=== PATIENT | female | born 1985 | race Hispanic/Latino ===

== ENCOUNTER 2024-12-16 19:17 | Emergency (ER) | payer MEDICAID ==
[~2024-12-16] VITALS: Ht 154.9 cm; Wt 95.3 kg
[2024-12-16 19:29] VITALS: BP 154/91; PULSE 88; RESP 18; TEMP 98.8
[2024-12-16 20:36] LABS: BASOPHILS # (AUTO) 0.08 K/uL (0.00-0.20); BASOPHILS % (AUTO) 0.7 % (0.0-5.0); EOSINOPHILS # (AUTO) 0.17 K/uL (0.00-0.70); EOSINOPHILS % (AUTO) 1.6 % (0.0-8.0); HEMATOCRIT 37.9 % (36-48); IMMATURE GRANULOCYTE ABSOLUTE 0.03 K/uL (0-1); LYMPHOCYTES # (AUTO) 2.7 K/uL (1.0-4.8); MEAN CORPUSCULAR HEMOGLOBIN 27.3 pg (27.0-33.0); MEAN CORPUSCULAR HGB CONC 31.9 g/dL (32.0-36.0); MEAN CORPUSCULAR VOLUME 85.4 fL (79-99); MONOCYTES # (AUTO) 0.7 K/uL (0.1-1.0); MONOCYTES % (AUTO) 6.6 % (3.0-13.0); NEUTROPHILS # (AUTO) 7.1 K/uL (1.8-7.7); NEUTROPHILS % (AUTO) 65.8 % (40.0-77.0); PLATELET COUNT (AUTO) 362 K/uL (130-400); RED BLOOD CELL COUNT(AUTO) 4.44 MIL/uL (4.00-5.50); RED CELL DISTRIBUTION WIDTH 13.5 % (11.0-15.5); WHITE BLOOD COUNT (AUTO) 10.8 K/uL (4.8-10.8)
--- NOTE | 2024-12-16 20:36 | HMCIMG ---
Exam Type: US OB <14 WEEKS Clinical Information: baginal bleeding Comparison: None FINDINGS: Single live intrauterine seen. There is a subchorionic bleed. CRL measures 0.61 cm , corresponds to 6 weeks 3 days. cardiac activity and heart rate is 144 beats per minute. The uterus is anteverted with normal shape. It measures 10.5 x 5.3 x 4.8 cm in its maximum length, anteroposterior and transverse dimensions. The myometrium is homogeneous and there is no evidence of focal or diffuse lesions. Both ovaries appear normal with normal flow on color and Spectral Doppler. No adnexal masses. No free fluid or collections. Urinary bladder appears normal. IMPRESSION: 1. Single live intrauterine gestation 6 weeks 3 days. 2. Subchorionic bleed. Follow-up advised.
[2024-12-16 20:53] LABS: CREATININE 0.7 mg/dL (0.5-1.0); POTASSIUM 4.2 mmol/L (3.5-5.1)
[2024-12-16 21:56] LABS: APPEARANCE,URINE CLOUDY (CLEAR); BILIRUBIN,URINE NEGATIVE (NEGATIVE); COLOR,URINE LIGHT-ORANGE (YELLOW); GLUCOSE, URINE (UA) NEGATIVE (NEGATIVE); KETONES,URINE NEGATIVE (NEGATIVE); LEUKOCYTE ESTERASE ,URINE 250 Leu/uL (NEGATIVE); NITRATE,URINE NEGATIVE (NEGATIVE); OCCULT BLOOD,URINE LARGE (NEGATIVE); PH,URINE 6.5 (5.0-8.0); PROTEIN,URINE 20 mg/dL (NEGATIVE); UROBILINOGEN,URINE 0.2 mg/dL (0.2-1.0)
[2024-12-16 21:59] LABS: BACTERIA,URINE FEW /HPF (None Seen); MUCUS,URINE RARE LPF (None Seen); RBC,URINE 51-100 /HPF (0-1); SQUAMOUS EPITHELIAL CELL,UR FEW /HPF (0-2); UNCLASSIFIED CRYSTAL 5 /HPF (None Seen); WBC,URINE 26-50 /HPF (0-1)
[2024-12-16] MEDS ORDERED: CEPH500C2 PO (22:10)
--- NOTE | 2024-12-16 22:11 | ERN ---
General Chief Complaint: OB<20 weeks gest. Stated Complaint: 8WKS ,CRAMPING,BLEEDING Time Seen by MD: 19:30 Time Seen by Midlevel: 19:30 Source: patient History of Present Illness Initial Comments 39-year-old female who presents to the emergency department due to vaginal bleeding. Patient reports she is eight weeks , A1. Complaining of lower abdominal/pelvic cramping, states he vaginal bleeding is light/spotting. Denies any dysuria, fever, vomiting or further associated symptoms. PMHx DM. Allergies: Coded Allergies: No Known Drug Allergies (Unverified Allergy, Unknown, 12/16/24) Home Meds Active Scripts Cephalexin (Cephalexin) 500 Mg Capsule, 1 CAP PO BID for 7 Days, #14 CAP 0 Refills Prov:MARITZA SANCHEZ 12/16/24 Past Medical History Past Medical History: Diabetes-Type II Past Surgical History: None ROS Dictation Constitutional: Negative for fever,chills, and weight loss Eyes: Negative for injury, pain,redness, and discharge ENT: Negative for injury,pain or swelling Cardiovascular: Negative for chest pain, palpitations, and edema Respiratory: Negative for shortness of breath, cough, and wheezing, Abdomen/GI: Positive for pelvic/lower abdominal cramping Negative for nausea, vomiting, diarrhea, and constipation Back: Negative for injury and pain : Positive for vaginal bleeding Negative for pain discharge MS/Extremity: Negative for injury and deformity Skin: Negative for rash, and discoloration Neuro: Negative for headache, weakness, numbness, tingling, and seizure Psych: Negative for suicide ideation, homicidal ideation, and hallucinations Physical Exam Physical Exam Dictation General: awake, alert, no acute distress Head/Face: Normocephalic, atraumatic Eyes: PERRL, EOMI, normal conjunctiva ENT: oral cavity clear, oral mucosa moist Neck: Supple, normal range of motion Cardiovascular: RRR, normal S1/S2 Respiratory: CTAB, no respiratory distress, no rales or wheezes Abdomen: Soft, non-tender, non-distended, normal bowel sounds, no guarding or rebound. Skin: Warm, dry, normal turgor, no rash MS/Extremity: Pulses equal, no cyanosis, neurovascular intact, FROM Neuro: COAx4, GCS 15, strength 5/5, CN 2-12 intact, normal cerebellar exam, normal gait Psych: Normal behavior, mood, and affect normal Results Laboratory and Microbiology Lab and Micro Result Laboratory Tests Test 12/16/24 20:30 12/16/24 21:44 White Blood Count 10.8 K/uL (4.8-10.8) Red Blood Count 4.44 MIL/uL (4.00-5.50) Hemoglobin 12.1 g/dL (12.0-16.0) Hematocrit 37.9 % (36-48) Mean Corpuscular Volume 85.4 fL (79-99) Mean Corpuscular Hemoglobin 27.3 pg (27.0-33.0) Mean Corpuscular Hemoglobin Concent 31.9 g/dL (32.0-36.0) L Red Cell Distribution Width 13.5 % (11.0-15.5) Platelet Count 362 K/uL (130-400) Mean Platelet Volume 8.4 fL (7.5-10.5) Immature Granulocyte % (Auto) 0.3 % (0-1) Neutrophils (%) (Auto) 65.8 % (40.0-77.0) Lymphocytes (%) (Auto) 25.0 % (21.0-51.0) Monocytes (%) (Auto) 6.6 % (3.0-13.0) Eosinophils (%) (Auto) 1.6 % (0.0-8.0) Basophils (%) (Auto) 0.7 % (0.0-5.0) Neutrophils # (Auto) 7.1 K/uL (1.8-7.7) Lymphocytes # (Auto) 2.7 K/uL (1.0-4.8) Monocytes # (Auto) 0.7 K/uL (0.1-1.0) Eosinophils # (Auto) 0.17 K/uL (0.00-0.70) Basophils # (Auto) 0.08 K/uL (0.00-0.20) Absolute Immature Granulocyte (auto 0.03 K/uL (0-1) Nucleated Red Blood Cells 0.0 % (0.0-0.19) Sodium Level 138 mmol/L (136-145) Potassium Level 4.2 mmol/L (3.5-5.1) Chloride Level 104 mmol/L (101-111) Carbon Dioxide Level 27 mmol/L (21-32) Blood Urea Nitrogen 8 mg/dL (7-18) Creatinine 0.7 mg/dL (0.5-1.0) Glomerular Filtration Rate Calc 114 mL/min (>90) Random Glucose 127 mg/dL (70-105) H Total Calcium 8.8 mg/dL (8.5-10.1) Human Chorionic Gonadotropin, Quant 1608 mIU/mL (0-5) H Serum Test, Qualitative POSITIVE (NEGATIVE) H Urine Color LIGHT-ORANGE (YELLOW) Urine Appearance CLOUDY (CLEAR) H Urine pH 6.5 (5.0-8.0) Urine Specific [place] 1.017 (1.001-1.031) Urine Protein 20 mg/dL (NEGATIVE) H Urine Glucose (UA) NEGATIVE mg/dL (NEGATIVE) Urine Ketones NEGATIVE mg/dL (NEGATIVE) Urine Occult Blood LARGE (NEGATIVE) H Urine Nitrate NEGATIVE (NEGATIVE) Urine Bilirubin NEGATIVE mg/dL (NEGATIVE) Urine Urobilinogen 0.2 mg/dL (0.2-1.0) Urine Leukocyte Esterase 250 Soto/uL (NEGATIVE) H Urine RBC 51-100 /HPF (0-1) H Urine WBC 26-50 /HPF (0-1) H Urine Squamous Epithelial Cells FEW /HPF (0-2) Urine Other Crystals (Auto) 5 /HPF (None Seen) Urine Bacteria FEW /HPF (None Seen) Labs Reviewed?: Yes EKG/XRAY/US/CT/MRI Ultrasound Comment REASON: baginal bleeding ORDERING PHYSICIAN: MARITZA SANCHEZ PROCEDURE: OB <14 - US OB <14 WEEKS Exam Type: US OB <14 WEEKS Clinical Information: baginal bleeding Comparison: None FINDINGS: Single live intrauterine seen. There is a subchorionic bleed. CRL measures 0.61 cm , corresponds to 6 weeks 3 days. cardiac activity and heart rate is 144 beats per minute. The uterus is anteverted with normal shape. It measures 10.5 x 5.3 x 4.8 cm in its maximum length, anteroposterior and transverse dimensions. The myometrium is homogeneous and there is no evidence of focal or diffuse lesions. Both ovaries appear normal with normal flow on color and Spectral Doppler. No adnexal masses. No free fluid or collections. Urinary bladder appears normal. IMPRESSION: 1. Single live intrauterine gestation 6 weeks 3 days. 2. Subchorionic bleed. Follow-up advised. DICTATED BY: GANESH SOLIS MD DATE: 12/16/242030 MDM MDM: Differential diagnosis: Threatened , miscarriage, early vaginal bleeding, subchorionic bleeding, UTI Rationale: 39-year-old female who presents to the emergency department due to vaginal bleeding. Patient reports she is eight weeks , A1. Complaining of lower abdominal/pelvic cramping, states he vaginal bleeding is light/spotting. Denies any dysuria, fever, vomiting or further associated symptoms. PMHx DM. Per physical examination patient is in no acute distress, labs obtained CBC and BNP are nonspecific within normal limits. HCG 1608. UA positive for urinary tract infection with 250 leukocyte esterase, 26-50 WBCs. Ultrasound obtained indicates intrauterine measuring six weeks three days with a heart rate of 144 beats per minute, any subchorionic bleed noted. Patient was educated on findings and diagnosis. Antibiotics prescribed for outpatient treatment. Advised to follow up with OBGYN. Return to the emergency department for any worsening symptoms. Patient verbalized understanding. Patient stable for discharge. There are no social concerns with this patient. I independently interpreted the test that were performed, results were reviewed by me and considered findings on radiology if ordered. Medical management and examination interpretation discussions were had by me with other qualified healthcare professionals as indicated for the patient's care. ED Course Orders Procedure Category Date Status Time Cbc With Differential LAB 12/16/24 Complete 20:05 Basic Metabolic Panel LAB 12/16/24 Complete 20:05 Urinalysis LAB 12/16/24 Complete W/Microscopic 20:05 Testing, LAB 12/16/24 Complete Serum Hcg 20:05 Us Ob <14 Weeks US 12/16/24 Resulted 20:05 Hcg,Quantitative LAB 12/16/24 Complete 21:37 Culture Urine LENNIE 12/16/24 In Process 21:57 Vital Signs Date Time Temp Pulse Resp B/P (MAP) Pulse Ox O2 Delivery O2 Flow Rate FiO2 12/16/24 19:29 98.8 88 18 154/91 99 Room Air 0 DX & DISP Disposition: Discharge Departure Impression: Primary Impression: Miscarriage, threatened, early Additional Impressions: Bleeding in early , UTI (urinary tract infection) Condition: Stable Scripts Cephalexin (Cephalexin) 500 Mg Capsule 1 CAP PO BID for 7 Days, #14 CAP 0 Refills Prov: MARITZA SANCHEZ 12/16/24 Additional Instructions: Discharge home. Rest. Follow up with primary care DrDave in 24 hours. Return to the ER for any acute changes or worsening symptoms. If any medications were prescribed take as directed. Okay to continue home medications unless otherwise discussed during your visit in the emergency room today. Patient was also advised to follow-up with primary care physician in 1 to 2 days for continued monitoring. Referrals: SELF,REFERRAL (PCP) I performed the substantive portion of the visit. I have reviewed and personally made and approve the management plan that is documented in the notes by myself or the JANNET. I acknowledge full responsibility for the patient's management plan. MARITZA SANCHEZ Dec 16, 2024 22:11
== END 2024-12-16 22:19 | disposition home or self-care (01) ==
LOC: EDH 19:17
DX: O20.0 Threatened abortion (principal); O23.41 Unspecified infection of urinary tract in pregnancy, first trimester; N39.0 Urinary tract infection, site not specified; O24.112 Pre-existing type 2 diabetes mellitus, in pregnancy, second trimester; Z3A.08 8 weeks gestation of pregnancy
CPT/HCPCS: 36415; 76801; 80048; 81001; 84702; 84703; 85025; 87086; 99284